=== PATIENT | male | born 1975 | race American Indian/Alaskan Native ===

== ENCOUNTER 2019-03-18 18:13 | Emergency (ER) | payer MEDICAID ==
[~2019-03-18] VITALS: Ht 185.4 cm; Wt 90.0 kg
[2019-03-18] MEDS ORDERED: HYDROcodone/acetaminophen 10/325mg tab PO ONE (18:55)
[2019-03-18] MEDS ORDERED: HYDR-4353 PO (19:03)
[2019-03-18 19:41] VITALS: BP 152/75
== END 2019-03-18 19:51 | disposition home or self-care (01) ==
LOC: ER 18:15
DX: T87.89 Other complications of amputation stump (principal); M79.671 Pain in right foot; Z88.6 Allergy status to analgesic agent; Z79.899 Other long term (current) drug therapy; Z59.0 Homelessness; Y83.8 Other surgical procedures as the cause of abnormal reaction of the patient, or of later complication, without mention of misadventure at the time of the procedure; Y92.89 Other specified places as the place of occurrence of the external cause
CPT/HCPCS: 99283